=== PATIENT | female | born 1980 ===

== ENCOUNTER 2023-12-20 16:14 | Emergency (ER) | payer BC ==
[2023-12-20 16:21] VITALS: BP 110/80; PULSE 104; RESP 18; TEMP 98.6; BMI 24.0
[2023-12-20] MEDS ORDERED: KETOROLAC TROMETHAMINE 30 MG/1 ML VIAL ONE (17:21)
[2023-12-20] MEDS: KETOROLAC TROMETHAMINE 30 MG/1 ML VIAL IM ONE (17:29)
== END 2023-12-20 17:47 | disposition home or self-care (01) ==
LOC: JERFT 16:14
PROC: 3E0233Z Introduction of Anti-inflammatory into Muscle, Percutaneous Approach (ICD-10-PCS; principal; 2023-12-20)
DX: J06.9 Acute upper respiratory infection, unspecified (principal); M62.838 Other muscle spasm
CPT/HCPCS: 84703; 99284-25